=== PATIENT | female | born 1950 | race Asian ===

== ENCOUNTER 2017-09-27 09:26 | Emergency (ER) | payer OTHER, MEDICAID ==
[2017-09-27] MEDS: ACETAMINOPHEN 500 MG TAB PO (09:50)
== END 2017-09-27 10:28 | disposition home or self-care (01) ==
LOC: FTE 09:26
DX: M54.9 Dorsalgia, unspecified (principal); I10 Essential (primary) hypertension; M25.511 Pain in right shoulder; M25.512 Pain in left shoulder; R51 Headache
CPT/HCPCS: 99283